=== PATIENT | male | born 1945 | race Caucasian/White ===

== ENCOUNTER → 2022-07-29 | Outpatient (CLI) | payer MEDICARE, OTHER | END | disposition home or self-care (01) | LOC: SHCH 15:05 | PROVIDERS: ATTEND Student in an Organized Health Care Education/Training Program | DX: I11.9 Hypertensive heart disease without heart failure (principal); I25.10 Atherosclerotic heart disease of native coronary artery without angina pectoris; E78.5 Hyperlipidemia, unspecified | CPT/HCPCS: 93306 ==

== ENCOUNTER → 2022-11-13 | Outpatient (CLI) | payer MEDICARE, OTHER ==
[2022-11-13 13:20] LABS: CHOLESTEROL 153 mg/dL (<200); HDL CHOLESTEROL 36 mg/dL (29-71); LDL DIRECT 98 mg/dL (0-99); TRIGLYCERIDES 93 mg/dL (30-200)
== END | disposition home or self-care (01) ==
LOC: LAB 09:15
PROVIDERS: ATTEND Student in an Organized Health Care Education/Training Program
DX: E78.2 Mixed hyperlipidemia (principal)
CPT/HCPCS: 36415; 80061

== ENCOUNTER → 2022-11-17 | Outpatient (CLI) | payer MEDICARE, OTHER | END | disposition home or self-care (01) | LOC: SHCH 14:49 | PROVIDERS: ATTEND Student in an Organized Health Care Education/Training Program | DX: R09.89 Other specified symptoms and signs involving the circulatory and respiratory systems (principal) | CPT/HCPCS: 93880 ==

== ENCOUNTER → 2023-06-25 | Outpatient (CLI) | payer MEDICARE, OTHER | END | disposition home or self-care (01) | LOC: SHCH 08:39 | PROVIDERS: ATTEND Student in an Organized Health Care Education/Training Program | DX: I11.9 Hypertensive heart disease without heart failure (principal); R00.1 Bradycardia, unspecified; R07.9 Chest pain, unspecified; E78.5 Hyperlipidemia, unspecified | CPT/HCPCS: 93306 ==

== ENCOUNTER → 2023-07-05 | Outpatient (CLI) | payer MEDICARE, OTHER | END | disposition home or self-care (01) | LOC: SHCH 10:44 | PROVIDERS: ATTEND Student in an Organized Health Care Education/Training Program | DX: I87.2 Venous insufficiency (chronic) (peripheral) (principal); R60.9 Edema, unspecified | CPT/HCPCS: 93970 ==

== ENCOUNTER 2024-07-19 05:52 | Day surgery (SDC) | payer MEDICARE, OTHER ==
[2024-07-17 09:57] VITALS: BP 137/66; PULSE 62; RESP 18; TEMP 97.3
[2024-07-17 10:05] LABS: BASOPHILS # (AUTO) 0.07 K/uL (0.00-0.20); BASOPHILS % (AUTO) 0.6 % (0.0-5.0); EOSINOPHILS % (AUTO) 3.2 % (0.0-8.0); HEMATOCRIT 48.5 % (42-54); IMMATURE GRANULOCYTE ABSOLUTE 0.06 K/uL (0-1); LYMPHOCYTES # (AUTO) 2.1 K/uL (1.0-4.8); LYMPHOCYTES % (AUTO) 16.9 % (21.0-51.0); MEAN CORPUSCULAR HEMOGLOBIN 31.6 pg (27.0-33.0); MEAN CORPUSCULAR VOLUME 95.8 fL (79-99); MONOCYTES % (AUTO) 7.7 % (3.0-13.0); NEUTROPHILS # (AUTO) 8.8 K/uL (1.8-7.7); NEUTROPHILS % (AUTO) 71.1 % (40.0-77.0); PLATELET COUNT (AUTO) 243 K/uL (130-400); RED BLOOD CELL COUNT(AUTO) 5.06 MIL/uL (4.50-6.20); RED CELL DISTRIBUTION WIDTH 13.5 % (11.0-15.5); WHITE BLOOD COUNT (AUTO) 12.4 K/uL (4.8-10.8)
[2024-07-17 10:14] LABS: CREATININE 1.3 mg/dL (0.5-1.3); POTASSIUM 4.7 mmol/L (3.5-5.1)
[2024-07-17 10:23] LABS: APPEARANCE,URINE CLEAR (CLEAR); BILIRUBIN,URINE NEGATIVE (NEGATIVE); COLOR,URINE LIGHT-YELLOW (YELLOW); GLUCOSE, URINE (UA) NEGATIVE (NEGATIVE); KETONES,URINE NEGATIVE (NEGATIVE); LEUKOCYTE ESTERASE ,URINE NEGATIVE Leu/uL (NEGATIVE); NITRATE,URINE NEGATIVE (NEGATIVE); OCCULT BLOOD,URINE NEGATIVE (NEGATIVE); PROTEIN,URINE 10 mg/dL (NEGATIVE); UROBILINOGEN,URINE 0.2 mg/dL (0.2-1.0)
[2024-07-17 10:28] LABS: INR 0.98 (0.85-1.15); PROTHROMBIN TIME 10.6 SEC (9.6-11.6)
[2024-07-17 10:30] LABS: PARTIAL THROMBOPLASTIN TIME 29.8 SEC (26.3-35.5)
[2024-07-17 10:37] LABS: ADD UA MICROSCOPIC YES
[2024-07-17 10:43] LABS: B-TYPE NATRIURETIC PEPTIDE 35 pg/mL (0-100)
--- NOTE | 2024-07-17 10:49 | EKG ---
[facility] Test Date: 2024-07-17 Test Time: 09:46:28 Pat Name: ERNESTO ENCISO Department: [facility] Room: Gender: M Numerical Control Programmer: [id number] : 1945 Requested By: SWEETIE COTTON Order Number: [id number] Reading MD: Lupillo Glover Measurements Intervals [place] Rate: 62 P: 13 NH: 216 QRS: -34 QRSD: 122 T: 24 QT: 434 QTc: 439 Interpretive Statements Atrial-sensed ventricular-paced complexes Borderline prolonged NH interval Left bundle branch block No previous ECG available for comparison Electronically Signed On 07-17-2024 13:11:47 KILN LABOURER by Lupillo Glover Please click the below link to view image of tracing.
[2024-07-17 10:56] LABS: BACTERIA,URINE RARE /HPF (None Seen); MUCUS,URINE RARE LPF (None Seen); SQUAMOUS EPITHELIAL CELL,UR RARE /HPF (0-2)
--- NOTE | 2024-07-17 12:20 | HMCIMG ---
CHEST 1VW HISTORY: Preop COMPARISON: 11/13/2003 FINDINGS: A frontal projection of the chest was obtained. No acute pulmonary infiltrates is seen. The heart is borderline enlarged. Degenerative changes are seen. Pacemaker is seen entering from the left. No evidence of aortic calcification is seen. IMPRESSION: 1. No acute pulmonary infiltrate is seen.
[~2024-07-19] VITALS: Ht 175.3 cm; Wt 97.3 kg
[2024-07-19] VITALS (11 sets, daily range): BP systolic 107–146; BP diastolic 52–65; PULSE 60–80; RESP 13–18; TEMP 96.7–97.8
[~2024-07-19 05:52] MED LIST: ASPI-1197 PO; ATOR40TA71 PO; CLOP75TA32 PO; FLUT15.845 NS; HYDR25TA67 PO; LOSA25TA41 PO; METO50TA18 PO; NIFE-39 PO; NITR0.4T50 SL; SPIR25TA6 PO
[2024-07-19] MEDS: 0.9%NACL 1000ML 1,000 ML IV ONE (06:29)
[2024-07-19] MEDS ORDERED: VERAPAMIL HCL 2.5 MG/ML VIAL ONE (07:08)
[2024-07-19] MEDS ORDERED: IOHEXOL 350 MG/ML 100ML INFUS..BTL IV ONE (07:08)
[2024-07-19] MEDS ORDERED: LIDOCAINE HCL 400MG/20ML VIAL ONE (07:08)
[2024-07-19] MEDS ORDERED: HEParin 10,000 UNIT/10ML (1,000 UNIT/ML) VIAL ONE (07:09)
[2024-07-19] MEDS ORDERED: HEParin-NS 1,000 UNIT/500 ML 1,000 ML IV ONE (07:09)
[2024-07-19] MEDS ORDERED: NITROGLYCERIN 50MG VIAL ONE (07:09)
[2024-07-19] MEDS ORDERED: FENTanyl CITRate PF 50 MCG/1 ML 2ML VIAL ONE (07:31)
[2024-07-19] MEDS ORDERED: MIDAZOLAM HCL 1 MG/ML 2ML VIAL ONE ×2 (07:31→08:05)
[2024-07-19] MEDS ORDERED: DiphenhydrAMINE HCL 50 MG/ML VIAL ONE (07:34)
[2024-07-19] MEDS ORDERED: ASPIRIN 325MG EC TAB PO ONE (08:02)
[2024-07-19] MEDS ORDERED: cloPIDOgrel 300MG TAB ONE (08:02)
[2024-07-19] MEDS ORDERED: 0.9%NACL 1000ML 1,000 ML IV SCH (09:00)
[2024-07-19] MEDS ORDERED: GLUCAGON 1MG KIT 1 MG ML IM PRN (09:00)
[2024-07-19] MEDS ORDERED: cloPIDOgrel 75MG TAB PO SCH (09:00)
[2024-07-19] MEDS ORDERED: DEXTROSE 50%-WATER 50 ML DISP.SYRIN IV PRN (09:00)
--- NOTE | 2024-07-19 09:02 | PRN ---
PROCEDURE REPORT DATE OF PROCEDURE: Jul 19, 2024 SENIOR ANALYSIS SPECIALIST: [ Mally reddy MD] PROCEDURE PERFORMED: Conscious sedation Ultrasound guided right radial artery access Selective left coronary artery angiogram Selective right coronary artery angiogram Left heart catheterization IVUS of the LAD and left main Status post successful IVUS guided PTCA/PCI of the proximal LAD (3.5 x 15 mm [place] drug-eluting stent, post dilated to 4.5 mm) TR band 13 david over right radial artery INDICATION: Abnormal coronary CTA DESCRIPTION OF PROCEDURE: After informed consent was obtained, the patient was prepped and draped in the usual sterile fashion. A 6 [place] arterial sheath was inserted in the right radial artery using ultrasound guidance with first pass wall puncture. The arterial sheath was aspirated and flushed. A 6 [place] JL 3.5 was then advanced to the ascending aorta over an exchange length J-tip guidewire, was aspirated and flushed, and was used for selective coronary angiograms in multiple obliquities. A JR-4 was advanced in a similar fashion to the ascending aorta over the J-tipped guidewire and was used for selective right coronary angiograms in multiple oblique views with findings as outlined below. The JR-4 catheter advanced into the LV and pressures were obtained with a pull-back across the aortic valve. Following review of all the angiographic images decision was made to intervene on the proximal LAD. We removed the diagnostic catheters and was exchanged for a six [place] XB three guide which was advanced over the wire to selectively engage the left main coronary artery. We provided 300 mg of Plavix, 324 of aspirin, and 20720 units of IV heparin and following therapeutic ACT we advanced an 014 [place] into the distal LAD under fluoroscopic guidance. We then proceeded to pre dilate the proximal LAD with a 3 x 12 mm compliant balloon to nominal pressures. We then deployed a 3.5 x 15 mm [place] drug-eluting stent to nominal pressure within the proximal LAD. We then proceeded with IVUS imaging of the proximal LAD and left main noting significant under size of stent. So we post dilated the proximal LAD with a 4.5 by 15 mm noncompliant balloon to nominal pressures. We noted christian of MATTHEW three flow with no dissections or perforations. All wires and catheters removed from the body and a A TR band was placed over right radial artery. Patient tolerated procedure well with no postprocedure complication was transferred to agriculture laborer holding in stable condition FLUOROSCOPY TIME: 9 min LEFT HEART HEMODYNAMICS: LVEDP 12 mm Hg and no gradient Ao CORONARY ANGIOGRAM: LEFT MAIN: Patent and 0% stenosis. Gives rise to LCx and LAD. LEFT ANTERIOR DESCENDING: Large vessel giving rise to two Diagonal branches. There is 90-95% proximal LAD stenosis at the 1st diagonal takeoff. D1 and D2 are small diffusely calcified with 50-60% diffuse stenosis LEFT CIRCUMFLEX: Large and gives rise to two OM branches. Patent. Om two was large with 50% proximal stenosis. RIGHT CORONARY ARTERY: Large, dominant vessel giving rise to PDA and PL branches. 0% stenosis. HEMOSTASIS: TR band 12 david over right radial artery INTERVENTIONS: Status post successful IVUS guided PTCA/PCI of the proximal LAD (3.5 x 15 mm [place] drug-eluting stent, post dilated to 4.5 mm) COMPLICATIONS: None FINDINGS: Normal coronary anatomy and severe proximal LAD disease status post successful IVUS guided revascularization x1. ESTIMATED BLOOD LOSS: 5 cc RECOMMENDATIONS/INSTRUCTIONS: Aggressive risk factor modification along with DAPT (aspirin 81 mg q.day/Plavix 75 mg q.day) in addition to high-intensity statin therapy Follow up with Dr. Duc reddy in 1-2 weeks post discharge. CONTRAST DELIVERED TO PATIENT (mL): 170cc Mally Reddy MD RHC: In a sterile fashion, a wire was advanced through the existing right cephalic vein and sheath was exchanged over the wire. A 5F swan catheter was advanced to the SVC and SaO2 was obtained, then the swan with balloon inflated was advanced to the wedge position and pressures obtained. The catheter was withdrawn into the right PA and oxygen saturations were obtained and pressures. Simultaneously, the arterial oxygen saturation was obtained in the right radial artery. Then, the catheter was withdrawn into the right ventricle and pressures were obtained. The swan was then removed. RHC: mm Hg Mean RA: 2 RV: 17/4 PA: 17/6 (8) PCWP: 6/3(5) CO/CI: 4.06/2.24 SVC O2 sat: 69.4% PA O2 sat: 74.9% Arterial O2 sat: 96.2% on room air MALLY REDDY MD Jul 19, 2024 09:02
== END 2024-07-19 13:30 | disposition home or self-care (01) ==
LOC: DAH 05:52
PROVIDERS: ATTEND Student in an Organized Health Care Education/Training Program
DX: I25.118 Atherosclerotic heart disease of native coronary artery with other forms of angina pectoris (principal); I44.1 Atrioventricular block, second degree; I10 Essential (primary) hypertension; E78.2 Mixed hyperlipidemia; I44.7 Left bundle-branch block, unspecified; R00.1 Bradycardia, unspecified; R04.0 Epistaxis; R07.89 Other chest pain; R42 Dizziness and giddiness; Z95.0 Presence of cardiac pacemaker; Z90.49 Acquired absence of other specified parts of digestive tract; Z88.8 Allergy status to other drugs, medicaments and biological substances; Z79.01 Long term (current) use of anticoagulants; Z79.899 Other long term (current) drug therapy
CPT/HCPCS: 80048; 83880; 85025; 85610; 85730; 81001; 36415; 71045; 93005; 92978; 92979; 93458; C9600; C1769 ×2; C1725 ×2; C1874; C1894; A4649; C1887; C1753; J1200; J3010; J3490 ×3; J7030; J1644 ×2; J2250 ×2; Q9967; A4215; A4222; A6260; A4221; A4663; A4216; A6206; A4606; Q9965 ×2; A4223 ×3; 96360; 96361; 99156; 99157

== ENCOUNTER → 2024-09-20 | Outpatient (CLI) | payer MEDICARE, OTHER ==
[~2024-09-20] MED LIST changes: -NIFE-39 PO
[2024-09-20 12:22] LABS: BASOPHILS # (AUTO) 0.07 K/uL (0.00-0.20); BASOPHILS % (AUTO) 0.6 % (0.0-5.0); EOSINOPHILS # (AUTO) 0.31 K/uL (0.00-0.70); EOSINOPHILS % (AUTO) 2.7 % (0.0-8.0); IMMATURE GRANULOCYTE ABSOLUTE 0.04 K/uL (0-1); LYMPHOCYTES # (AUTO) 1.8 K/uL (1.0-4.8); MEAN CORPUSCULAR HEMOGLOBIN 31.9 pg (27.0-33.0); MEAN CORPUSCULAR HGB CONC 32.9 g/dL (32.0-36.0); MEAN CORPUSCULAR VOLUME 97.2 fL (79-99); MONOCYTES # (AUTO) 0.9 K/uL (0.1-1.0); MONOCYTES % (AUTO) 8.3 % (3.0-13.0); NEUTROPHILS # (AUTO) 8.2 K/uL (1.8-7.7); PLATELET COUNT (AUTO) 250 K/uL (130-400); RED BLOOD CELL COUNT(AUTO) 5.04 MIL/uL (4.50-6.20); RED CELL DISTRIBUTION WIDTH 13.5 % (11.0-15.5); WHITE BLOOD COUNT (AUTO) 11.4 K/uL (4.8-10.8)
[2024-09-20 12:25] LABS: APPEARANCE,URINE CLEAR (CLEAR); BILIRUBIN,URINE NEGATIVE (NEGATIVE); COLOR,URINE LIGHT-YELLOW (YELLOW); GLUCOSE, URINE (UA) NEGATIVE (NEGATIVE); KETONES,URINE NEGATIVE (NEGATIVE); LEUKOCYTE ESTERASE ,URINE NEGATIVE Leu/uL (NEGATIVE); NITRATE,URINE NEGATIVE (NEGATIVE); OCCULT BLOOD,URINE NEGATIVE (NEGATIVE); PROTEIN,URINE NEGATIVE (NEGATIVE); UROBILINOGEN,URINE 0.2 mg/dL (0.2-1.0)
[2024-09-20 12:27] LABS: MUCUS,URINE RARE LPF (None Seen); WBC,URINE 0-1 /HPF (0-1)
[2024-09-20 12:52] LABS: CHOLESTEROL 142 mg/dL (<200); HDL CHOLESTEROL 35 mg/dL (29-71); LDL DIRECT 98 mg/dL (0-99); TRIGLYCERIDES 101 mg/dL (30-200)
== END | disposition home or self-care (01) ==
LOC: LAB 09:12
PROVIDERS: ATTEND Student in an Organized Health Care Education/Training Program
DX: E78.2 Mixed hyperlipidemia (principal); D72.829 Elevated white blood cell count, unspecified
CPT/HCPCS: 36415; 80061; 81001; 85025

== ENCOUNTER → 2024-12-05 | Outpatient (CLI) | payer MEDICARE, OTHER ==
[2024-12-05 12:27] LABS: CHOLESTEROL 158 mg/dL (<200); HDL CHOLESTEROL 40 mg/dL (29-71); LDL DIRECT 99 mg/dL (0-99); TRIGLYCERIDES 139 mg/dL (30-200)
== END | disposition home or self-care (01) ==
LOC: LAB 09:49
PROVIDERS: ATTEND Student in an Organized Health Care Education/Training Program
DX: E78.2 Mixed hyperlipidemia (principal)
CPT/HCPCS: 36415; 80061

== ENCOUNTER → 2024-12-14 | Outpatient (CLI) | payer MEDICARE, OTHER | END | disposition home or self-care (01) | LOC: SHCH 08:11 | PROVIDERS: ATTEND Student in an Organized Health Care Education/Training Program | DX: I70.203 Unspecified atherosclerosis of native arteries of extremities, bilateral legs (principal); I70.90 Unspecified atherosclerosis | CPT/HCPCS: 93925; 93978 ==

== ENCOUNTER → 2025-02-27 | Outpatient (CLI) | payer MEDICARE, OTHER ==
[2025-02-27 10:58] LABS: BASOPHILS % (AUTO) 1.1 % (0.0-5.0); EOSINOPHILS # (AUTO) 0.39 K/uL (0.00-0.70); EOSINOPHILS % (AUTO) 4.2 % (0.0-8.0); HEMATOCRIT 44.4 % (42-54); LYMPHOCYTES # (AUTO) 2.4 K/uL (1.0-4.8); LYMPHOCYTES % (AUTO) 25.3 % (21.0-51.0); MEAN CORPUSCULAR HEMOGLOBIN 31.9 pg (27.0-33.0); MEAN CORPUSCULAR HGB CONC 33.3 g/dL (32.0-36.0); MEAN CORPUSCULAR VOLUME 95.7 fL (79-99); MONOCYTES # (AUTO) 0.9 K/uL (0.1-1.0); MONOCYTES % (AUTO) 9.7 % (3.0-13.0); NEUTROPHILS # (AUTO) 5.4 K/uL (1.8-7.7); NEUTROPHILS % (AUTO) 58.6 % (40.0-77.0); PLATELET COUNT (AUTO) 206 K/uL (130-400); RED BLOOD CELL COUNT(AUTO) 4.64 MIL/uL (4.50-6.20); RED CELL DISTRIBUTION WIDTH 13.8 % (11.0-15.5); WHITE BLOOD COUNT (AUTO) 9.3 K/uL (4.8-10.8)
[2025-02-27 11:14] LABS: ALBUMIN 3.6 g/dL (3.5-5.0); BILIRUBIN,TOTAL 0.8 mg/dL (0.2-1.0); POTASSIUM 4.3 mmol/L (3.5-5.1)
== END | disposition home or self-care (01) ==
LOC: LAB 09:48
PROVIDERS: ATTEND Student in an Organized Health Care Education/Training Program
DX: I10 Essential (primary) hypertension (principal); E78.2 Mixed hyperlipidemia; R07.89 Other chest pain
CPT/HCPCS: 36415; 80053; 80061; 85025